=== PATIENT | female | born 1955 | race Caucasian/White ===

== ENCOUNTER 2017-07-10 17:38 | Emergency (ER) | payer SELFPAY ==
[~2017-07-10] VITALS: Ht 172.7 cm; Wt 104.5 kg
[~2017-07-10 17:38] MED LIST: ALEVE 220MG220 MG PO; CEPHALEXIN500 M1 PO; FLEXERIL10 MG PO; MOTRIN 800800 MG/TAB PO; NAPROSYN PO; NAPROSYN375 MG PO; NORCO 325 MG-51 TAB PO; PERCOCET 5/321 UDTAB PO
[2017-07-10 17:44] VITALS: TEMP 98.2
[2017-07-10 18:16] LABS: BASO # 0.1 (0.0-0.2); BASO % 0.8 % (0.0-2.0); EOS # 0.1 (0.0-0.7); EOS % 1.1 % (0-4.0); GRAN # 4.8 (1.4-6.5); GRAN % 61.2 % (42.2-75.2); HEMATOCRIT 41.7 % (37.0-47.0); LYMPH # 2.3 (1.2-3.4); LYMPH % 28.7 % (20.0-51.0); MEAN CELL VOLUME 89 fl (80.0-100.0); MEAN CORPUSCULAR HEMOGLOBIN 30 pg (27.0-31.0); MEAN CORPUSCULAR HGB CONC 34 g/dl (33.0-37.0); MONO # 0.6 (0.1-0.6); MONO % 8.1 % (1.7-9.3); PLATELET COUNT 185 K/mm3 (130-400); WHITE BLOOD COUNT 7.9 K/mm3 (4.8-10.8)
[2017-07-10 18:47] LABS: ADJUSTED CALCIUM 9.7 mg/dL (8.4-10.2); ALBUMIN 3.9 gm/dL (3.5-5.0); BILIRUBIN,TOTAL 0.8 mg/dL (0.0-1.0); CALCIUM 9.6 mg/dL (8.4-10.2); CREATININE, serum 1.26 mg/dL (0.52-1.25); POTASSIUM 3.7 mmol/L (3.4-5.0); TOTAL PROTEIN 6.9 gm/dL (6.4-8.2)
[2017-07-10 18:59] LABS: TROPONIN-I 0.012 ng/mL (0.000-0.034)
[2017-07-10 19:47] VITALS: BP 161/73; PULSE 56
== END 2017-07-10 19:48 | disposition home or self-care (01) ==
LOC: COL.ER 17:38
PROVIDERS: Emergency Medicine
DX: I10 Essential (primary) hypertension (principal); F17.210 Nicotine dependence, cigarettes, uncomplicated; Z90.49 Acquired absence of other specified parts of digestive tract

== ENCOUNTER 2017-09-25 10:36 | Inpatient (IN) | payer OTHER ==
[~2017-09-25] VITALS: Ht 175.3 cm; Wt 97.2 kg
[2017-09-25] MEDS ORDERED: NORVASC 10MG10 MG PO (10:43)
[2017-09-25 11:28] LABS: BASO # 0.1 (0.0-0.2); BASO % 0.9 % (0.0-2.0); EOS # 0.1 (0.0-0.7); EOS % 1.9 % (0-4.0); GRAN % 59.1 % (42.2-75.2); HEMATOCRIT 44.8 % (37.0-47.0); LYMPH # 2.2 (1.2-3.4); LYMPH % 32.4 % (20.0-51.0); MEAN CELL VOLUME 87 fl (80.0-100.0); MEAN CORPUSCULAR HEMOGLOBIN 29 pg (27.0-31.0); MEAN CORPUSCULAR HGB CONC 34 g/dl (33.0-37.0); MEAN PLATELET VOLUME 12.2 fl (7.4-10.4); MONO # 0.4 (0.1-0.6); MONO % 5.4 % (1.7-9.3); PLATELET COUNT 246 K/mm3 (130-400); RED BLOOD COUNT 5.17 M/mm3 (4.10-5.30); REDCELL DISTRIBUTION WIDTH-CV 14.6 % (11.5-14.5)
[2017-09-25 11:30] LABS: INR 1.2 (0.8-3.0)
[2017-09-25 11:33] LABS: PARTIAL THROMBOPLASTIN TIME 39.4 SECONDS (26.0-37.0)
[2017-09-25 11:36] LABS: ALBUMIN 4.7 gm/dL (3.5-5.0); BILIRUBIN,TOTAL 0.9 mg/dL (0.0-1.0); CALCIUM 9.8 mg/dL (8.4-10.2); CREATININE, serum 1.25 mg/dL (0.52-1.25); POTASSIUM 3.5 mmol/L (3.4-5.0); TOTAL PROTEIN 8.2 gm/dL (6.4-8.2)
[2017-09-25 12:10] LABS: ARTERIAL BLD GAS O2 SATURATION 97.5 % (92-100); ARTERIAL BLD GAS TCO2 CT 10.6; ARTERIAL BLOOD GAS BASE EXCESS -14.3 (-2-2); ARTERIAL BLOOD GAS pH 7.29 (7.35-7.45)
[2017-09-25] MEDS ORDERED: NAPROSYN 2250 MG/TAB PO (12:28)
[2017-09-25 13:07] VITALS: BP 121/69; PULSE 59; TEMP 97.5
[2017-09-25 15:31] VITALS: BP 112/64; PULSE 52; TEMP 97.9
[2017-09-25 19:25] VITALS: BP 111/58; PULSE 72; TEMP 97.5
[2017-09-25 21:54] LABS: ARTERIAL BLD GAS TCO2 CT 13.1; ARTERIAL BLOOD GAS BASE EXCESS -11.1 (-2-2); ARTERIAL BLOOD GAS HCO3 12.4 meq/L (22-26); ARTERIAL BLOOD GAS PO2 95.1 mmHg (80-100); ARTERIAL BLOOD GAS pH 7.35 (7.35-7.45)
[2017-09-25 21:55] LABS: ARTERIAL BLOOD GAS PCO2 22.8 mmHg (35-45)
[2017-09-25 22:11] LABS: HEMATOCRIT 38.7 % (37.0-47.0)
[2017-09-25 22:20] LABS: ANION GAP 16 mmol/L (7-16); BLOOD UREA NITROGEN 6 mg/dL (7-17); CHLORIDE 110 mmol/L (98-107); CREATININE, serum 1.04 mg/dL (0.52-1.25); GLUCOSE 70 mg/dL (74-106); POTASSIUM 3.3 mmol/L (3.4-5.0); SODIUM 138 mmol/L (137-145)
[2017-09-25 22:22] LABS: CARBON DIOXIDE 12 mmol/L (22-30); SALICYLATE < 1.0 mg/dL
[2017-09-26] VITALS (7 sets, daily range): BP systolic 105–123; BP diastolic 51–67; PULSE 49–57; TEMP 96.9–98.8
[2017-09-26 07:46] LABS: BASO % 0.7 % (0.0-2.0); EOS # 0.1 (0.0-0.7); EOS % 1.7 % (0-4.0); GRAN # 3.1 (1.4-6.5); GRAN % 58.5 % (42.2-75.2); LYMPH # 1.8 (1.2-3.4); LYMPH % 33.3 % (20.0-51.0); MEAN CELL VOLUME 87 fl (80.0-100.0); MEAN CORPUSCULAR HGB CONC 34 g/dl (33.0-37.0); MEAN PLATELET VOLUME 12.7 fl (7.4-10.4); MONO # 0.3 (0.1-0.6); MONO % 5.6 % (1.7-9.3); PLATELET COUNT 174 K/mm3 (130-400); RED BLOOD COUNT 4.08 M/mm3 (4.10-5.30); REDCELL DISTRIBUTION WIDTH-CV 14.9 % (11.5-14.5)
[2017-09-26 08:11] LABS: CALCIUM 8.7 mg/dL (8.4-10.2); CREATININE, serum 1.08 mg/dL (0.52-1.25); MAGNESIUM 1.9 mg/dL (1.6-2.3); PHOSPHOROUS 3.4 mg/dL (2.5-4.5); POTASSIUM 3.1 mmol/L (3.4-5.0)
[2017-09-26 08:14] LABS: HEMATOCRIT 35.4 % (37.0-47.0); HEMOGLOBIN 11.9 g/dl (12.5-16.0); MEAN CORPUSCULAR HEMOGLOBIN 29 pg (27.0-31.0)
[2017-09-26 22:59] LABS: COLLECTION METHOD CLEAN CATCH
[2017-09-26 23:11] LABS: PH 5 (5-8); SQUAMOUS EPITHELIAL 0-2 /hpf; URINE APPEARANCE Hazy; URINE BACTERIA Rare /hpf; URINE BILIRUBIN Negative (NEGATIVE); URINE BLOOD 1+ (NEGATIVE); URINE COLOR Yellow; URINE GLUCOSE Negative (NEGATIVE); URINE KETONE 2+ (NEGATIVE); URINE LEUKOCYTE ESTERASE 3+ (NEGATIVE); URINE NITRATE Negative (NEGATIVE); URINE PROTEIN(semi-quant) 1+ (NEGATIVE); URINE UROBILINOGEN Negative (NEGATIVE); URINE WBC 20-50 /hpf
[2017-09-27 00:04] VITALS: BP 110/61; PULSE 58; TEMP 97.7
[2017-09-27 04:01] VITALS: BP 126/58; PULSE 54; TEMP 98.2
[2017-09-27 07:02] LABS: BASO % 0.8 % (0.0-2.0); EOS # 0.1 (0.0-0.7); EOS % 2.5 % (0-4.0); GRAN # 1.8 (1.4-6.5); GRAN % 45.6 % (42.2-75.2); LYMPH # 1.8 (1.2-3.4); LYMPH % 44.7 % (20.0-51.0); MEAN CELL VOLUME 85 fl (80.0-100.0); MEAN CORPUSCULAR HGB CONC 33 g/dl (33.0-37.0); MEAN PLATELET VOLUME 12.4 fl (7.4-10.4); MONO # 0.2 (0.1-0.6); MONO % 6.1 % (1.7-9.3); PLATELET COUNT 153 K/mm3 (130-400); RED BLOOD COUNT 3.82 M/mm3 (4.10-5.30); REDCELL DISTRIBUTION WIDTH-CV 14.8 % (11.5-14.5)
[2017-09-27 07:28] LABS: CALCIUM 8.3 mg/dL (8.4-10.2); CREATININE, serum 0.88 mg/dL (0.52-1.25); HEMATOCRIT 32.6 % (37.0-47.0); HEMOGLOBIN 10.9 g/dl (12.5-16.0); MEAN CORPUSCULAR HEMOGLOBIN 29 pg (27.0-31.0); POTASSIUM 3.1 mmol/L (3.4-5.0)
[2017-09-27 08:49] VITALS: BP 129/64; PULSE 57; TEMP 98.1
[2017-09-27 11:18] VITALS: BP 128/54; PULSE 51; TEMP 97.9
[2017-09-27 15:29] VITALS: BP 144/62; PULSE 53; TEMP 97.8
[2017-09-27 19:40] VITALS: BP 138/64; PULSE 53; TEMP 98.4
[2017-09-28 00:14] VITALS: BP 137/71; PULSE 58; TEMP 98.7
[2017-09-28 04:32] VITALS: BP 117/60; PULSE 59; TEMP 98.9
[2017-09-28 06:51] LABS: BASO % 0.8 % (0.0-2.0); EOS # 0.1 (0.0-0.7); EOS % 2.3 % (0-4.0); GRAN # 1.7 (1.4-6.5); GRAN % 42.8 % (42.2-75.2); LYMPH # 1.9 (1.2-3.4); LYMPH % 47.4 % (20.0-51.0); MEAN CELL VOLUME 85 fl (80.0-100.0); MEAN CORPUSCULAR HGB CONC 34 g/dl (33.0-37.0); MEAN PLATELET VOLUME 12.9 fl (7.4-10.4); MONO # 0.3 (0.1-0.6); MONO % 6.4 % (1.7-9.3); PLATELET COUNT 143 K/mm3 (130-400); RED BLOOD COUNT 3.78 M/mm3 (4.10-5.30); REDCELL DISTRIBUTION WIDTH-CV 15.1 % (11.5-14.5)
[2017-09-28 07:07] LABS: HEMATOCRIT 32.3 % (37.0-47.0); MEAN CORPUSCULAR HEMOGLOBIN 29 pg (27.0-31.0)
[2017-09-28 07:10] LABS: CALCIUM 8.3 mg/dL (8.4-10.2); CREATININE, serum 0.91 mg/dL (0.52-1.25); MAGNESIUM 1.6 mg/dL (1.6-2.3); PHOSPHOROUS 1.7 mg/dL (2.5-4.5); POTASSIUM 3.5 mmol/L (3.4-5.0)
[2017-09-28 07:43] VITALS: BP 128/62; PULSE 58; TEMP 97.6
[2017-09-28] MEDS ORDERED: ZOFRAN ODT4 MG PO (09:33)
[2017-09-28] MEDS ORDERED: PROTONIX 40MG T40 MG PO (09:33)
== END 2017-09-28 11:15 | disposition home or self-care (01) | DRG 378 ==
LOC: COL.ER 10:36 → MEDICAL 11:57 → EDBEDREQ 12:11 → MEDICAL 09-28 11:15
PROVIDERS: Emergency Medicine; Internal Medicine; Internal Medicine Gastroenterology; Physician Assistant
PROC: 0DB78ZX Excision of Stomach, Pylorus, Via Natural or Artificial Opening Endoscopic, Diagnostic (ICD-10-PCS; 2017-09-26)
PROC: 0DB38ZX Excision of Lower Esophagus, Via Natural or Artificial Opening Endoscopic, Diagnostic (ICD-10-PCS; principal; 2017-09-26 14:30)
DX: K92.0 Hematemesis (principal); E87.2 Acidosis; K21.9 Gastro-esophageal reflux disease without esophagitis; E87.6 Hypokalemia; E16.2 Hypoglycemia, unspecified; K26.7 Chronic duodenal ulcer without hemorrhage or perforation; K29.30 Chronic superficial gastritis without bleeding; E83.39 Other disorders of phosphorus metabolism; F17.210 Nicotine dependence, cigarettes, uncomplicated; I10 Essential (primary) hypertension
CPT/HCPCS: 99222-AI; 99232-AI; 99239; C9113; J2250; J2405; J3010; J7030; J7120; J7121

== ENCOUNTER 2017-12-29 16:13 | Emergency (ER) | payer SELFPAY ==
[~2017-12-29] VITALS: Ht 172.7 cm; Wt 109.1 kg
[~2017-12-29 16:13] MED LIST changes: +NAPROSYN 2250 MG/TAB PO; +NORVASC 10MG10 MG PO; +PROTONIX 40MG T40 MG PO; +ZOFRAN ODT4 MG PO
[2017-12-29 16:15] VITALS: TEMP 97.7
[2017-12-29 16:47] LABS: BASO % 0.8 % (0.0-2.0); EOS # 0.1 (0.0-0.7); EOS % 2.8 % (0-4.0); GRAN # 2.6 (1.4-6.5); GRAN % 52.9 % (42.2-75.2); HEMOGLOBIN 12.2 g/dl (12.5-16.0); LYMPH % 39.7 % (20.0-51.0); MEAN CELL VOLUME 87 fl (80.0-100.0); MEAN CORPUSCULAR HEMOGLOBIN 30 pg (27.0-31.0); MEAN CORPUSCULAR HGB CONC 35 g/dl (33.0-37.0); MEAN PLATELET VOLUME 11.2 fl (7.4-10.4); MONO # 0.2 (0.1-0.6); MONO % 3.6 % (1.7-9.3); PLATELET COUNT 222 K/mm3 (130-400); RED BLOOD COUNT 4.08 M/mm3 (4.10-5.30); REDCELL DISTRIBUTION WIDTH-CV 17.9 % (11.5-14.5)
[2017-12-29 16:48] LABS: HEMATOCRIT 35.4 % (37.0-47.0)
[2017-12-29 16:51] LABS: INR 1.3 (0.8-3.0); PROTHROMBIN TIME 14.8 SECONDS (9.7-12.8)
[2017-12-29 16:58] LABS: ALBUMIN 3.4 gm/dL (3.5-5.0); BILIRUBIN,TOTAL 1.3 mg/dL (0.0-1.0); CALCIUM 8.9 mg/dL (8.4-10.2); CREATININE, serum 1.18 mg/dL (0.52-1.25); POTASSIUM 3.6 mmol/L (3.4-5.0); TOTAL PROTEIN 7.6 gm/dL (6.4-8.2)
[2017-12-29 18:46] LABS: COLLECTION METHOD CLEAN CATCH
[2017-12-29 18:58] LABS: MUCOUS Present /lpf; PH 5 (5-8); URINE APPEARANCE Cloudy; URINE BACTERIA Rare /hpf; URINE BILIRUBIN Negative (NEGATIVE); URINE BLOOD 1+ (NEGATIVE); URINE COLOR Amber; URINE GLUCOSE Negative (NEGATIVE); URINE KETONE 1+ (NEGATIVE); URINE LEUKOCYTE ESTERASE 3+ (NEGATIVE); URINE NITRATE Negative (NEGATIVE); URINE PROTEIN(semi-quant) 1+ (NEGATIVE); URINE UROBILINOGEN Negative (NEGATIVE); URINE WBC >50 /hpf
[2017-12-29] MEDS ORDERED: CEPHALEXIN500 M1 PO (20:31)
[2017-12-29] MEDS ORDERED: PROTONIX 40MG T40 MG PO (20:38)
[2017-12-29 20:43] VITALS: BP 116/70; PULSE 65
== END 2017-12-29 20:51 | disposition home or self-care (01) ==
LOC: COL.ER 16:13
PROVIDERS: Emergency Medicine
DX: E86.0 Dehydration (principal); E87.1 Hypo-osmolality and hyponatremia; N39.0 Urinary tract infection, site not specified; I10 Essential (primary) hypertension; F17.210 Nicotine dependence, cigarettes, uncomplicated; Z90.49 Acquired absence of other specified parts of digestive tract
CPT/HCPCS: J7030